=== PATIENT | female | born 1995 | race Caucasian/White ===

== ENCOUNTER 2019-07-25 14:02 | Emergency (ER) | payer MEDICAID ==
[~2019-07-25] VITALS: Ht 160 cm; Wt 93.4 kg
--- NOTE | 2019-07-25 14:18 | NUR ---
THIS IS A 24 YO F W/ C/O INTERMITTENT RT EAR RINGING SINCE , INTERMITTENT CRUZ SINCE SATURDAY, RT SIDE NECK PAIN SINCE SATURDAY, AND DRY BLOODY NOSE SINCE SATURDAY. PT IS RESTING ON NIMCO W/ DR.VAN RADFORD AT BEDSIDE. VS STABLE, RESP EVEN AND UNLABORED, NADN. DENIES ABD PAIN, N/V. CALL LIGHT IN REACH. AWAITING ORDERS.
[2019-07-25 14:23] VITALS: BP 121/73
[2019-07-25] MEDS ORDERED: DEXAMETHASONE 4 MG TABLET ONE (14:28)
[2019-07-25] MEDS ORDERED: DEXAMETHASONE 4 MG TABLET PO ONE (14:30)
--- NOTE | 2019-07-25 14:36 | NUR ---
Patient given discharge instructions and they have confirmed that they understand the instructions. Patient ambulatory with steady gait.
== END 2019-07-25 14:37 | disposition home or self-care (01) ==
LOC: ED 14:23
DX: J03.00 Acute streptococcal tonsillitis, unspecified (principal); H61.23 Impacted cerumen, bilateral
CPT/HCPCS: 99283